=== PATIENT | female | born 1980 | race Caucasian/White ===

== ENCOUNTER 2018-06-22 17:30 | Emergency (ER) | payer OTHER ==
[~2018-06-22] VITALS: Ht 162.6 cm; Wt 56.2 kg
[2018-06-22 17:47] VITALS: BP 146/86; TEMP 36.4; Ht 162.6 cm; Wt 56.2 kg
--- NOTE | 2018-06-22 18:52 | DIAGNOSTIC IMAGING REPORT ---
R ANKLE MIN 3 VIEWS ROUTINE CLINICAL HISTORY: R ankle pain s/p fall trauma. Pain. COMPARISON: None. DISCUSSION: The bones and joint spaces appear intact. There is no evidence of fracture, dislocation or bony disease. There is no evidence for soft tissue swelling. IMPRESSION: Negative study. The above report was generated using voice recognition software. It may contain grammatical, syntax or spelling errors. Electronically signed by: Kelvin Arnett M.D. 06/22/2018 6:50 PM Dictated Date/Time: 06/22/2018 6:50 PM
--- NOTE | 2018-06-22 18:55 | DIAGNOSTIC IMAGING REPORT ---
SACRUM COCCYX MIN 2 VIEWS CLINICAL HISTORY: LBP/scaral pain s/p fall trauma. Pain. COMPARISON STUDY: No previous studies for comparison. FINDINGS: Negative study IMPRESSION: Negative study The above report was generated using voice recognition software. It may contain grammatical, syntax or spelling errors. Electronically signed by: Kelvin Arnett M.D. 06/22/2018 6:54 PM Dictated Date/Time: 06/22/2018 6:53 PM
--- NOTE | 2018-06-22 18:56 | DIAGNOSTIC IMAGING REPORT ---
L-SPINE MIN 4 VIEWS ROUTINE HISTORY: Trauma. Pain. LBP/scaral pain s/p fall COMPARISON: None. FINDINGS: There is no fracture. No subluxation. Disc spaces are preserved. IMPRESSION: No fracture or subluxation within the lumbar spine. The above report was generated using voice recognition software. It may contain grammatical, syntax or spelling errors. Electronically signed by: Kelvin Arnett M.D. 06/22/2018 6:55 PM Dictated Date/Time: 06/22/2018 6:54 PM
--- NOTE | 2018-06-22 19:30 | EMERGENCY ROOM VISIT NOTE ---
History First contact with patient: 17:49 Chief Complaint: FALL Stated Complaint: BACK PAIN AND LEFT ANKLE PAIN;FALL History of Present Illness The patient is a 37 year old female who presents to the Emergency Room with complaints of lower back pain, tailbone pain and right ankle pain. The patient reports that she has fallen twice over the past 3 days. She has a history of muscular dystrophy and does fall frequently. The patient reports that she fell in her shower Thursday evening, striking her back on the edge of the tub. The patient reports that the pain was manageable at that time. She then fell again today, reinjuring her back and right ankle. The patient currently denies any pain radiating up to the back or into the abdomen. She denies pain radiating into the buttocks, thighs or legs. She reports that her ankle pain hurts mostly on the outside. She has not noticed any swelling of the back or ankle region, and rates her discomfort a 9 out of 10. She has not taken any medication for her pain. Review of Systems 10 system review was performed and was negative except for pertinent positives and negatives as indicated in history of present illness Past Medical/Surgical History Medical Problems: (1) Muscular dystrophy Surgical Problems: (1) No history of previous surgery Family History Unremarkable Social History Smoking Status: Never Smoker Marital Status: single Occupation Status: unemployed, disabled Physical Exam Vital Signs Date Time Temp Pulse Resp B/P (MAP) Pulse Ox O2 Delivery O2 Flow Rate FiO2 06/22/18 17:47 36.4 59 18 146/86 99 Room Air Physical Exam CONSTITUTIONAL: Healthy and well nourished. Alert and oriented X 3 with positive affect. She does not appear in any acute distress. HEENT: Normocephalic, atraumatic. Pupils equal, round and reactive. No scalp hematomas, epistaxis, subconjunctival hemorrhage or raccoon's eyes. NECK: Full active range of motion without discomfort. RESPIRATORY: Clear to auscultation bilaterally with no wheezing, crackles, rhonchi or stridor. CARDIOVASCULAR: Regular rate and rhythm with no murmurs, rubs or gallops. GASTROINTESTINAL: Bowel sounds present in all quadrants. Soft and nontender to palpation. MUSCULOSKELETAL: Examination shows generalized tenderness to palpation of the central lumbar spine and posterior sacral region. No ecchymosis or lacerations noted. Pelvis stable with rock. Negative logroll bilaterally. Examination of the right ankle does not show any obvious soft tissue edema, ecchymosis or open wounds. She is tender over the lateral ankle region. Negative anterior draw. No focal tenderness over the deltoid ligament, dorsal midfoot, metatarsals, phalanges or proximal leg. She has mild tenderness over the Achilles tendon without any obvious palpable defect. No retrocalcaneal edema. Pedal pulses are intact. INTEGUMENTARY: No rash or other significant dermatologic conditions noted. NEUROLOGIC: No focal neurologic deficits noted. Upper and lower extremities are sensory intact. Medical Decision & Procedures ER Provider Diagnostic Interpretation: My interpretation of lumbar spine does not show any acute fractures or subluxations. Radiologist report is as follows: L-SPINE MIN 4 VIEWS ROUTINE HISTORY: Trauma. Pain. LBP/scaral pain s/p fall COMPARISON: None. FINDINGS: There is no fracture. No subluxation. Disc spaces are preserved. IMPRESSION: No fracture or subluxation within the lumbar spine. My interpretation of sacral x-rays also does not show any acute fractures. Radiologist report is as follows: SACRUM COCCYX MIN 2 VIEWS CLINICAL HISTORY: LBP/scaral pain s/p fall trauma. Pain. COMPARISON STUDY: No previous studies for comparison. FINDINGS: Negative study IMPRESSION: Negative study My interpretation of right ankle x-rays show any acute fractures, dislocation or ankle mortise asymmetry. Radiologist report is as follows: R ANKLE MIN 3 VIEWS ROUTINE CLINICAL HISTORY: R ankle pain s/p fall trauma. Pain. COMPARISON: None. DISCUSSION: The bones and joint spaces appear intact. There is no evidence of fracture, dislocation or bony disease. There is no evidence for soft tissue swelling. IMPRESSION: Negative study. ED Course Patient history and physical exam were performed. Nurse's notes were reviewed. Vital signs were reviewed and grossly normal. The patient refused any analgesics on initial exam room and right ankle were normal. The patient reports that she has crutches at home. She reports that her ankle pain has not improved over the past 3 days. She was instructed to follow-up with [facility] for further reevaluation and management. She was encouraged to intermittently apply ice to areas of discomfort. An ankle brace was applied. The patient voiced understanding of all discharge instructions, and rated her discomfort a 6 out of 10 at the conclusion of my exam. The patient was also seen and examined by Dr. Smalls, ED attending physician, who agrees with workup and plan of care. Medical Decision Medication Reconcilliation Current Medication List: was personally reviewed by me Blood Pressure Screening Patient's blood pressure: Normal blood pressure Impression Primary Impression: Lumbar contusion Additional Impression: Right ankle sprain Departure Information Referrals No Doctor, Assigned (PCP) Patient Instructions My [facility] Health Problem Qualifiers
[2018-06-22 19:38] VITALS: PULSE 63; O2SAT 97
== END 2018-06-22 19:36 | disposition home or self-care (01) ==
LOC: C.EDB 17:31 → C.EDC 19:36
DX: S93.402A Sprain of unspecified ligament of left ankle, initial encounter (principal); S30.0XXA Contusion of lower back and pelvis, initial encounter; W19.XXXA Unspecified fall, initial encounter; G71.0 Muscular dystrophy